=== PATIENT | female | born 1985 | race Caucasian/White ===

== ENCOUNTER 2024-05-02 21:13 | Emergency (ER) | payer OTHER, BC, SELFPAY ==
[2024-05-02 21:22] VITALS: BP 95/67
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
[2024-05-02 23:51] VITALS: BP 96/72
== END 2024-05-02 23:52 | disposition home or self-care (01) ==
LOC: EMR 21:13
PROVIDERS: EMERGENCY PHYSICIAN Student in an Organized Health Care Education/Training Program; FAMILY PHYSICIAN Family Medicine
DX: S13.4XXA Sprain of ligaments of cervical spine, initial encounter (principal); R51.9 Headache, unspecified; M54.6 Pain in thoracic spine; M25.519 Pain in unspecified shoulder; V49.40XA Driver injured in collision with unspecified motor vehicles in traffic accident, initial encounter; Y92.410 Unspecified street and highway as the place of occurrence of the external cause; F17.200 Nicotine dependence, unspecified, uncomplicated; Z87.01 Personal history of pneumonia (recurrent)
CPT/HCPCS: 99284; 71046; 72050

== ENCOUNTER → 2024-06-18 10:14 | Outpatient (REF) | payer BC, SELFPAY | LOC: HWWDC 10:14 | PROVIDERS: ATTENDING PHYSICIAN Nurse Practitioner Family; FAMILY PHYSICIAN Family Medicine | DX: Z12.31 Encounter for screening mammogram for malignant neoplasm of breast (principal) | CPT/HCPCS: 77063; 77067 ==

== ENCOUNTER → 2024-07-10 06:30 | Outpatient (REF) | payer BC, SELFPAY ==
--- NOTE | 2024-07-10 09:28 | OID.BR.INTR ---
[facility] Breast Navigator - Initial
- -
Date of Contact: 07/10/24
Met with patient. Patient given written information on navigator services available at [facility]. Will follow up as needed per protocol.
== END ==
LOC: WDC 06:30
PROVIDERS: ATTENDING PHYSICIAN Nurse Practitioner Family
DX: R92.1 Mammographic calcification found on diagnostic imaging of breast (principal)
CPT/HCPCS: 88305; 19081; 76098; A4648

== ENCOUNTER → 2025-01-23 13:50 | Outpatient (REF) | payer OTHER, SELFPAY | LOC: RAD 13:50 | PROVIDERS: ATTENDING PHYSICIAN Physical Medicine & Rehabilitation Pain Medicine; FAMILY PHYSICIAN Physician Assistant Medical | DX: G54.0 Brachial plexus disorders (principal); M79.621 Pain in right upper arm | CPT/HCPCS: 93971 ==